=== PATIENT | female | born 2000 | race Caucasian/White ===

== ENCOUNTER 2024-02-18 21:55 | Emergency (ER) | payer BC | END 2024-02-18 23:40 | disposition home or self-care (01) | LOC: MW.ED 21:55 | DX: M79.672 Pain in left foot (principal); Z88.1 Allergy status to other antibiotic agents; Z88.0 Allergy status to penicillin; Z75.8 Other problems related to medical facilities and other health care | CPT/HCPCS: 73630-26-LT; 73630-LT; 99283 ==